=== PATIENT | male | born 1950 | race American Indian/Alaskan Native ===

== ENCOUNTER 2020-09-05 05:54 | Observation (INO) | payer MEDICARE ==
[2020-09-01 10:12] LABS: Hematocrit 42.3 % (35.5-45.6); Hemoglobin 14.2 gm/dl (11.8-15.2); Mean Corpuscular HGB Conc 34 % (32-34); Mean Corpuscular Volume 89 fl (84-94); Platelet Count 230 K/mm3 (140-440); Red Blood Count 4.76 M/mm3 (3.65-5.03); Red Cell Distribution Width 13.6 % (13.2-15.2)
--- NOTE | 2020-09-01 10:24 | Anesthesia Consultation ---
Anesthesia Consult and Med Hx Date of service: 09/05/20 - Airway Anesthetic Teeth Evaluation: Chipped (Missing) ROM Head & Neck: Adequate Mental/Hyoid Distance: Adequate Mallampati Class: Class II Intubation Access Assessment: Good - Pre-Operative Health Status ASA Pre-Surgery Classification: ASA2 Proposed Anesthetic Plan: General Nerve Block: TAP - Pulmonary Hx Smoking: Yes (Quit many years ago) Hx Asthma: No COPD: No Hx Pneumonia: No Hx Sleep Apnea: No (SNORES HIGH RISK ON FLORY PRESCREEN) - Cardiovascular System Hx Hypertension: Yes Hx Heart Attack/AMI: No Hx Pacemaker: No Hx Internal Defibrillator: No Hx Heart Murmur: No - Central Nervous System Hx Seizures: No Hx Back Pain: No Hx Psychiatric Problems: Yes - Endocrine Hx Renal Disease: No Hx End Stage Renal Disease: No Hx Cirrhosis: No Hx Liver Disease: No - Hematic Hx Anemia: No Hx Sickle Cell Disease: No - Other Systems Hx Alcohol Use: No Hx Substance Use: No Hx Cancer: Yes Hx Obesity: Yes
[2020-09-01 10:36] LABS: Alanine Aminotransferase 15 units/L (7-56); Albumin 3.9 g/dL (3.9-5); BUN/Creatinine Ratio 15; Blood Urea Nitrogen 15 mg/dL (9-20); Calcium 8.7 mg/dL (8.4-10.2); Hemolysis Index 5
[2020-09-05] MEDS ORDERED: CELECOXIB 200 MG CAP PO NR (06:00)
[2020-09-05] MEDS ORDERED: LACTATED RINGERS 1,000 ML IV SCH (06:00)
[2020-09-05] MEDS ORDERED: MIDAZOLAM 2 MG/2 ML INJ IV NR (06:00)
[2020-09-05] MEDS ORDERED: MAGNESIUM OXIDE 400 MG TAB PO NR (06:00)
[2020-09-05] MEDS ORDERED: ACETAMINOPHEN 325 MG TAB PO NR (06:00)
[2020-09-05] MEDS ORDERED: fentaNYL 100 MCG/2 ML INJ IV NR (06:00)
[2020-09-05] MEDS ORDERED: BACTERIOSTATIC SODIUM CHLORIDE 0.9% 30 ML VIAL INFILTRATI ONE (06:06)
[2020-09-05] MEDS ORDERED: BUPIVACAINE/PF (0.5%) 5 MG/1 ML 30 ML VIAL INFILTRATI ONE ×2 (06:44→07:15)
[2020-09-05] MEDS ORDERED: LIDOCAINE (1%) 10 MG/1 ML VIAL 20 ML MDV ONE (06:44)
[2020-09-05] MEDS ORDERED: dexAMETHasone 20 MG/5 ML VIAL ONE ×2 (06:44→07:25)
[2020-09-05] MEDS ORDERED: SODIUM CHLORIDE 0.9% 500 ML 500 ML ONE (06:45)
[2020-09-05] MEDS ORDERED: CITRIC ACID-SOD CITRATE 500 ML IV ONE (07:15)
[2020-09-05] MEDS ORDERED: METHYLENE BLUE 50 MG/10 ML AMP ONE (07:15)
[2020-09-05] MEDS ORDERED: CALCIUM CHLORIDE 1,000 MG/10 ML SYRINGE IV ONE (07:15)
[2020-09-05] MEDS ORDERED: THROMBIN (RECOMBINANT) 5,000 UNIT VIAL TP ONE (07:15)
[2020-09-05] MEDS ORDERED: ROCURONIUM 50 MG/5 ML INJ IV ONE ×2 (07:25→10:28)
[2020-09-05] MEDS ORDERED: ONDANSETRON 4 MG/2 ML INJ ONE (07:25)
[2020-09-05] MEDS ORDERED: LIDOCAINE MPF (2%) 20 MG/1 ML VIAL 5 ML ONE (07:25)
[2020-09-05] MEDS ORDERED: propofoL 200 MG/20 ML VIAL IV ONE (07:26)
[2020-09-05] MEDS ORDERED: HYDROmorphone 1 MG/1 ML INJ ONE (07:26)
[2020-09-05] MEDS ORDERED: ceFAZolin/STERILE WATER 2 GM/20 ML SYRINGE IV NR (07:30)
[2020-09-05] MEDS ORDERED: ONDANSETRON 4 MG/2 ML INJ IV PRN ×2 (09:03→11:30)
--- NOTE | 2020-09-05 09:04 | Anesthesia Day of Surgery ---
Anesthesia Day of Surgery - Day of Surgery Patient Examined: Yes Patient H&P Reviewed: Yes Patient is NPO: Yes
[2020-09-05] MEDS ORDERED: SODIUM CHLORIDE 0.9% IRR 1,500 ML BOTTLE IR ONE (09:17)
[2020-09-05] MEDS ORDERED: SODIUM CHLORIDE 0.9% IRRIG SOLN 2000 ML IR ONE (09:17)
[2020-09-05] MEDS ORDERED: WATER FOR IRRIG STERILE 1,500 ML BOTTLE IR ONE (09:17)
[2020-09-05] MEDS ORDERED: GLYCOPYRROLATE 0.4 MG/2 ML INJ ONE (10:28)
[2020-09-05] MEDS ORDERED: NEOSTIGMINE 10MG/10 ML INJ MDV ONE (10:28)
[2020-09-05] MEDS ORDERED: LACTATED RINGERS 1,000 ML ONE (10:35)
--- NOTE | 2020-09-05 10:46 | Short Stay Summary ---
Short Stay Documentation Date of service: 09/05/20 - History H&P: obtained from office - Allergies and Medications Current Medications: Allergies No Known Allergies Allergy (Unverified 08/29/20 16:24) Home Medications Medication Instructions Recorded Confirmed Last Taken Type NIFEdipine [Nifedipine ER] 30 mg PO DAILY 08/29/20 09/05/20 09/05/20 05:30 History Omeprazole 40 mg PO DAILY 08/29/20 09/05/20 09/04/20 History One-Daily Multi-Vitamin 1 caplet PO DAILY 08/29/20 09/05/20 09/03/20 History Active Medications Acetaminophen (Acetaminophen 325 Mg Tab) 650 mg PO ONCE NR Stop: 09/05/20 23:59 Last Admin: 09/05/20 06:50 Dose: 650 mg Documented by: Cefazolin Sodium (Cefazolin/Sterile Water 2 Gm/20 Ml Syringe) 2 gm IV PREOP NR Stop: 09/05/20 21:00 Celecoxib (Celecoxib 200 Mg Cap) 200 mg PO PREOP NR Stop: 09/05/20 23:59 Last Admin: 09/05/20 06:50 Dose: 200 mg Documented by: Fentanyl (Fentanyl 100 Mcg/2 Ml Inj) 100 mcg IV ONCE NR Stop: 09/05/20 23:59 Last Admin: 09/05/20 07:21 Dose: 100 mcg Documented by: Hydromorphone HCl (Hydromorphone 1 Mg/1 Ml Inj) 0.5 mg IV Q10MIN PRN PRN Reason: Pain , Severe (7-10) Stop: 09/05/20 23:00 Lactated Ringer's (Lactated Ringers) 1,000 mls @ 125 mls/hr IV DIRECT ASHWIN Last Admin: 09/05/20 06:55 Dose: 125 mls/hr Documented by: Magnesium Oxide (Magnesium Oxide 400 Mg Tab) 400 mg PO ONCE NR Stop: 09/05/20 23:59 Last Admin: 09/05/20 06:50 Dose: 400 mg Documented by: Midazolam HCl (Midazolam 2 Mg/2 Ml Inj) 2 mg IV PREOP NR Stop: 09/05/20 23:59 Last Admin: 09/05/20 07:21 Dose: 2 mg Documented by: Ondansetron HCl (Ondansetron 4 Mg/2 Ml Inj) 4 mg IV ONCE PRN PRN Reason: Nausea And Vomiting Stop: 09/05/20 20:00 - Brief post op/procedure progress note Date of procedure: 09/05/20 Pre-op diagnosis: prostate cancer Post-op diagnosis: same Procedure: robotic prostatectomy, bladder neck suspenstion, stem cell graft Anesthesia: GETA Surgeon: ENMA BOATENG Estimated blood loss: other (300cc) Pathology: list (prostate) Specimen disposition: to lab Condition: stable - Hospital course Hospital course: nocro& bactrim/post op info on chart / nurse at bedside mirela removed dc home with garcia - Disposition Condition at discharge: Stable Short Stay Discharge Plan Follow up with: SUE SWAN MD [Primary Care Provider] - 7 Days
--- NOTE | 2020-09-05 10:52 | Consultation ---
History of Present Illness - Reason for Consult Consult date: 09/05/20 HTN Requesting physician: ENMA BOATENG - History of Present Illness Patient is a 69 year old male with past medical hx of htn, prostate cancer who was admitted for observation following robotic prostatectomy, bladder neck suspension, stem cell graft and we are consulted to assist with medical m anagement of prostate cancer while in house. Patient tolerated the procedure without any reported complications. He denies any chest pain, Fever, shortness of breath or blurry vision at the time of my exam. He only reported soreness at the site of surgery. Past History Past Medical History: hypertension Past Surgical History: Other (robotic prostatectomy, bladder neck suspenstion, stem cell graft) Social history: , full code. denies: alcohol abuse, IV drug use Family history: no significant family history Medications and Allergies Allergies Allergy/AdvReac Type Severity Reaction Status Date / Time No Known Allergies Allergy Unverified 08/29/20 16:24 Home Medications Medication Instructions Recorded Confirmed Last Taken Type NIFEdipine [Nifedipine ER] 30 mg PO DAILY 08/29/20 09/05/20 09/05/20 05:30 History Omeprazole 40 mg PO DAILY 08/29/20 09/05/20 09/04/20 History One-Daily Multi-Vitamin 1 caplet PO DAILY 08/29/20 09/05/20 09/03/20 History Active Meds: Active Medications Acetaminophen (Acetaminophen 325 Mg Tab) 650 mg PO ONCE NR Stop: 09/05/20 23:59 Last Admin: 09/05/20 06:50 Dose: 650 mg Documented by: Cefazolin Sodium (Cefazolin/Sterile Water 2 Gm/20 Ml Syringe) 2 gm IV PREOP NR Stop: 09/05/20 21:00 Celecoxib (Celecoxib 200 Mg Cap) 200 mg PO PREOP NR Stop: 09/05/20 23:59 Last Admin: 09/05/20 06:50 Dose: 200 mg Documented by: Fentanyl (Fentanyl 100 Mcg/2 Ml Inj) 100 mcg IV ONCE NR Stop: 09/05/20 23:59 Last Admin: 09/05/20 07:21 Dose: 100 mcg Documented by: Hydromorphone HCl (Hydromorphone 1 Mg/1 Ml Inj) 0.5 mg IV Q10MIN PRN PRN Reason: Pain , Severe (7-10) Stop: 09/05/20 23:00 Lactated Ringer's (Lactated Ringers) 1,000 mls @ 125 mls/hr IV DIRECT ASHWIN Last Admin: 09/05/20 06:55 Dose: 125 mls/hr Documented by: Sodium Chloride (Nacl 0.9% 1000 Ml) 1,000 mls @ 125 mls/hr IV DIRECT ASHWIN Cefazolin Sodium (Ancef/Ns 1 Gm/50 Ml) 1 gm in 50 mls @ 100 mls/hr IV Q8H ASHWIN; Protocol Stop: 09/05/20 19:29 Magnesium Oxide (Magnesium Oxide 400 Mg Tab) 400 mg PO ONCE NR Stop: 09/05/20 23:59 Last Admin: 09/05/20 06:50 Dose: 400 mg Documented by: Midazolam HCl (Midazolam 2 Mg/2 Ml Inj) 2 mg IV PREOP NR Stop: 09/05/20 23:59 Last Admin: 09/05/20 07:21 Dose: 2 mg Documented by: Miscellaneous Medication (Omeprazole [Omeprazole]) 40 mg PO DAILY [facility] Morphine Sulfate (Morphine 4 Mg/1 Ml Inj) 4 mg IV Q4H PRN PRN Reason: Pain , Severe (7-10) Naloxone HCl (Naloxone 0.4 Mg/1 Ml Inj) 0.1 mg IV Q2MIN PRN PRN Reason: Res Rate </= 8 or 02 SAT < 92% Nifedipine (Nifedipine Xl 30 Mg Tab) 30 mg PO DAILY [facility] Ondansetron HCl (Ondansetron 4 Mg/2 Ml Inj) 4 mg IV ONCE PRN PRN Reason: Nausea And Vomiting Stop: 09/05/20 20:00 Ondansetron HCl (Ondansetron 4 Mg/2 Ml Inj) 4 mg IV Q8H PRN PRN Reason: Nausea And Vomiting Zolpidem Tartrate (Zolpidem 5 Mg Tab) 5 mg PO QHS PRN PRN Reason: Sleep Review of Systems All systems: negative Genitourinary Male: other (sore at surgical site) Exam - Constitutional Vitals: Temp Pulse Resp BP Pulse Ox 98.3 F 61 16 156/80 98 09/01/20 10:00 09/01/20 10:00 09/01/20 10:00 09/01/20 10:00 09/01/20 10:00 General appearance: Present: no acute distress - EENT Eyes: Present: PERRL, EOM intact - Neck Neck: Present: supple, normal ROM - Respiratory Respiratory effort: normal Respiratory: bilateral: CTA - Cardiovascular Rhythm: regular Heart Sounds: Present: S1 & S2. Absent: systolic murmur, diastolic murmur - Extremities Extremities: no ischemia, pulses intact, No edema, normal temperature, Full ROM Peripheral Pulses: within normal limits - Abdominal General gastrointestinal: Present: soft, non-tender, non-distended - Integumentary Integumentary: Present: clear, warm - Musculoskeletal Musculoskeletal: strength equal bilaterally - Psychiatric Psychiatric: appropriate mood/affect, intact judgment & insight - Neurologic Neurologic: CNII-XII intact, moves all extremities - Allied Health Allied health notes reviewed: nursing Results - Labs CBC & Chem 7: 09/01/20 09:50 09/01/20 09:50 Assessment and Plan Patient is a 69 year old male with past medical hx of htn, prostate cancer who was admitted for observation following robotic prostatectomy, bladder neck suspension, stem cell graft and we are consulted to assist with medical management of prostate cancer while in house. Patient tolerated the procedure without any reported complications. He denies any chest pain, Fever, shortness of breath or blurry vision at the time of my exam. He only reported soreness at the site of surgery. HTN Prostate Cancer Plan Continue Home BP meds as already prescribed Pain control per urology DVT prophy Thank you for allowing us take part in the care of your patient, will follow while in house Plan discussed with patient Follow up with PCP and Urologist on discharge.
[2020-09-05] MEDS ORDERED: SODIUM CHLORIDE 0.9% 1000 ML 1,000 ML IV SCH (11:00)
[2020-09-05] MEDS ORDERED: NALOXONE 0.4 MG/1 ML INJ IV PRN (11:00)
[2020-09-05] MEDS: HYDROmorphone 1 MG/1 ML INJ IV PRN ×4 (11:10→11:40)
--- NOTE | 2020-09-05 11:57 | Operative Report ---
DATE OF SURGERY: 09/05/2020 PREOPERATIVE DIAGNOSIS: Prostate cancer, [place] 8. POSTOPERATIVE DIAGNOSIS: Prostate cancer, [place] 8. PROCEDURE: Robotic-assisted laparoscopic prostatectomy, bladder neck suspension, stem cell graft implantation. SURGEON: Shaheed Paredes MD FOOD AND NUTRITION TEACHER: Yanci Villanueva. ANESTHESIA: General. ESTIMATED BLOOD LOSS: 300 mL. FLUIDS: Crystalloid 125 mL, Cell Saver. COMPLICATIONS: No complications. DRAINS: Eric-Chaudhry drain x1. INDICATIONS FOR PROCEDURE: This is a 69-year-old gentleman referred for an elevated PSA of [address] Yury Huitron. Prostate ultrasound and biopsy revealed a [place] 8 adenocarcinoma of the prostate. Bone scan and CT scan unremarkable. Discussed options. He agreed to proceed with surgical intervention. DESCRIPTION OF PROCEDURE: The patient was taken to the operative suite, placed in a supine position. After adequate general anesthesia, his Doan catheter was placed on the operative field. A 1 inch supraumbilical incision was made with a Bovie. Towel clips were placed. A Veress needle was used for drop test, which was negative. Opening pressure was 4 cm of water. Insufflation of the abdomen was performed to 15 cm of water. 15 cm was marked in the midline cephalad to the pubic symphysis 9 cm lateral. Additional 9 cm lateral were placed and used for port placement. A 10 mm 0-degree lens was placed without difficulty. No signs of injury or metastasis could be appreciated. The patient was then placed in exaggerated dorsal lithotomy position. The 8 mm robotic ports were placed on the left, an 8 mm robotic port on the right, 10 mm helper port as well as a 5 mm helper port on the right. The robotic cart was docked between the legs. Next, attention was taken to the posterior aspect of the prostate and bladder. Second arch was scored. Seminal vesicles and vas deferens were identified and dissected out. The vas deferens was transected. Dissection was taken to the apex of the prostate. Next, attention was taken to the abdominal wall lateral to the lateral umbilical ligament was scored bilaterally and then across the midline to allow the bladder flap to drop, pubic rami could be appreciated bilaterally, the endopelvic fascia was opened bilaterally as well. Dorsal vein complex was then controlled with a 60 mm vascular stapler. Attention was then taken to the bladder neck, which was manipulated to identify, the Doan was transected anteriorly exposing the Doan catheter, which was deflated and pulled anteriorly. The ureteral orifices could be appreciated and was uninjured. Posterior bladder neck was transected exposing the seminal vesicles and vas deferens, which were pulled anteriorly. Lateral pedicles were then controlled with the 60 mm vascular stapler. Dissection of the apex of the prostate was performed. The distal urethra was transected. Prostate was dissected free and placed in the EndoCatch bag. Copious irrigation was performed. Adequate hemostasis was achieved. The bladder neck was then tapered down using a 2-0 Vicryl at the 5 o'clock and 7 o'clock positions to allow insertion of 18-Syriac Dona. Double armed V-Loc was placed at the 6 o'clock position of the ____ 6 o'clock position of the bladder neck corresponding aspect of the urethra in a running stitch bilaterally. An 18-Syriac Doan catheter was then placed into the bladder, 20 mL of sterile water was placed. The anastomotic stitch was cinched down. Doan was irrigated. No clots. Next, the stem cell graft, a 1 cm segment was placed along the neurovascular bundle on the right and left sides without difficulty. The bladder was used to suspend it in position. A Eric-Chaudhry drain was brought out through side port on the left port. The robotic cart was undocked. The patient was then placed in the supine position. The supraumbilical port was removed along with all the other ports. The supraumbilical incision was extended to allow removal of the prostate. #1 Vicryl was used for closure of the supraumbilical incision. A [id number] stitch was placed in the skin and the rectus fascia x3. Eric-Chaudhry drain was secured with 2-0 silk in interrupted fashion. Skin was closed with 3-0 chromic in interrupted fashion. Doan catheter sideport was folded over and tied with 0 silk in interrupted fashion. The patient tolerated the procedure, was extubated and taken to the recovery room. PLAN: He will be observed overnight and go home on Bactrim and [place]. TID: [id number] RECEIPT: [id number] SULMA/CLAUDIA
[2020-09-05] MEDS ORDERED: PANTOPRAZOLE 40 MG TAB PO SCH (12:00)
--- NOTE | 2020-09-05 14:06 | Post Anesthesia Evaluation ---
- Post Anesthesia Evaluation Patient Participated: Yes Airway Patent: Yes Stable Respiratory Function: Yes Nausea/Vomiting: No Temp > 96.8F: Yes Pain Manageable: Yes Adequeate Hydration: Yes Anesthesia Complications: No
[2020-09-05] MEDS: ceFAZolin/NS 1 GM/50 ML 1 GM/50 ML BAG IV SCH (17:24)
[2020-09-05] MEDS: MORPHINE 4 MG/1 ML INJ IV PRN ×2 (17:27→21:53)
[2020-09-05] MEDS ORDERED: ZOLPIDEM 5 MG TAB PO PRN (22:00)
[2020-09-06] MEDS: ceFAZolin/NS 1 GM/50 ML 1 GM/50 ML BAG IV SCH (02:04)
[2020-09-06] MEDS: MORPHINE 4 MG/1 ML INJ IV PRN (02:09)
[2020-09-06 07:38] VITALS: BP 111/58
[2020-09-06 08:44] LABS: Basophils % (Auto) 0.4 % (0.0-1.8); Eosinophils % (Auto) 0.3 % (0.0-4.3); Hematocrit 37.6 % (35.5-45.6); Hemoglobin 12.3 gm/dl (11.8-15.2); Lymphocytes # (Auto) 2.2 K/mm3 (1.2-5.4); Lymphocytes % (Auto) 21.5 % (13.4-35.0); Mean Corpuscular HGB Conc 33 % (32-34); Mean Corpuscular Volume 89 fl (84-94); Monocytes # (Auto) 1.5 K/mm3 (0.0-0.8); Platelet Count 216 K/mm3 (140-440); Red Blood Count 4.22 M/mm3 (3.65-5.03); Red Cell Distribution Width 13.7 % (13.2-15.2)
--- NOTE | 2020-09-06 08:49 | Progress Note ---
Assessment and Plan Assessment and plan: Patient is a 69 year old male with past medical hx of htn, prostate cancer who was admitted for observation following robotic prostatectomy, bladder neck suspension, stem cell graft and we are consulted to assist with medical management of prostate cancer while in house. Patient tolerated the procedure w ithout any reported complications. He denies any chest pain, Fever, shortness of breath or blurry vision at the time of my exam. He only reported soreness at the site of surgery. HTN Prostate Cancer Plan Continue Home BP meds as already prescribed Ok with discharge plan Pain control per urology DVT prophy Thank you for allowing us take part in the care of your patient, will follow while in house Plan discussed with patient Follow up with PCP and Urologist on discharge. History Interval history: Patient seen and examined today. No new complaints. Required pain meds at night but doing well this morning Hospitalist Physical - Physical exam Narrative exam: VITAL SIGNS: Reviewed. GENERAL: The patient appears normally developed, Vital signs as documented. HEAD: No signs of head trauma. EYES: Pupils are equal. Extraocular motions intact. EARS: Hearing grossly intact. MOUTH: Oropharynx is normal. NECK: No adenopathy, no JVD. CHEST: Chest with clear breath sounds bilaterally. No wheezes, rales, or rhonchi. CARDIAC: Regular rate and rhythm. S1 and S2, without murmurs, gallops, or rubs. VASCULAR: No Edema. Peripheral pulses normal and equal in all extremities. ABDOMEN: Soft, non tender and non distended. enlarged panus, No rebound or guarding, and no masses palpated. Bowel Sounds normal. MUSCULOSKELETAL: Good range of motion of all major joints. Extremities without clubbing, cyanosis or edema. NEUROLOGIC EXAM: Alert and oriented x 3 No focal sensory or strength deficits. Speech normal. Follows commands. PSYCHIATRIC: Mood normal. SKIN: detail exam as documented in skin assessment - Constitutional Vitals: Temp Pulse Resp BP Pulse Ox 98.6 F 55 L 16 111/58 96 09/06/20 07:11 09/06/20 07:11 09/06/20 07:11 09/06/20 07:11 09/06/20 07:11 General appearance: Present: no acute distress Results - Labs CBC & Chem 7: 09/06/20 08:17 09/01/20 09:50 Labs: Laboratory Last Values WBC 10.3 K/mm3 (4.5-11.0) 09/06/20 08:17 RBC 4.22 M/mm3 (3.65-5.03) 09/06/20 08:17 Hgb 12.3 gm/dl (11.8-15.2) 09/06/20 08:17 Hct 37.6 % (35.5-45.6) 09/06/20 08:17 MCV 89 fl (84-94) 09/06/20 08:17 MCH 29 pg (28-32) 09/06/20 08:17 MCHC 33 % (32-34) 09/06/20 08:17 RDW 13.7 % (13.2-15.2) 09/06/20 08:17 Plt Count 216 K/mm3 (140-440) 09/06/20 08:17 Lymph % (Auto) 21.5 % (13.4-35.0) 09/06/20 08:17 [place] % (Auto) 14.0 % (0.0-7.3) H 09/06/20 08:17 Eos % (Auto) 0.3 % (0.0-4.3) 09/06/20 08:17 Baso % (Auto) 0.4 % (0.0-1.8) 09/06/20 08:17 Lymph # (Auto) 2.2 K/mm3 (1.2-5.4) 09/06/20 08:17 [place] # (Auto) 1.5 K/mm3 (0.0-0.8) H 09/06/20 08:17 Eos # (Auto) 0.0 K/mm3 (0.0-0.4) 09/06/20 08:17 Baso # (Auto) 0.0 K/mm3 (0.0-0.1) 09/06/20 08:17 Seg Neutrophils % 63.8 % (40.0-70.0) 09/06/20 08:17 Seg Neutrophils # 6.6 K/mm3 (1.8-7.7) 09/06/20 08:17 Sodium 140 mmol/L (137-145) 09/01/20 09:50 Potassium 4.1 mmol/L (3.6-5.0) 09/01/20 09:50 Chloride 104.7 mmol/L (98-107) 09/01/20 09:50 Carbon Dioxide 27 mmol/L (22-30) 09/01/20 09:50 Anion Gap 12 mmol/L 09/01/20 09:50 BUN 15 mg/dL (9-20) 09/01/20 09:50 Creatinine 1.0 mg/dL (0.8-1.3) 09/01/20 09:50 Estimated GFR > 60 ml/min 09/01/20 09:50 BUN/Creatinine Ratio 15 % 09/01/20 09:50 Glucose 128 mg/dL (75-100) H 09/01/20 09:50 Calcium 8.7 mg/dL (8.4-10.2) 09/01/20 09:50 Total Bilirubin 0.60 mg/dL (0.1-1.2) 09/01/20 09:50 AST 19 units/L (5-40) 09/01/20 09:50 ALT 15 units/L (7-56) 09/01/20 09:50 Alkaline Phosphatase 72 units/L (35-129) 09/01/20 09:50 Total Protein 7.2 g/dL (6.3-8.2) 09/01/20 09:50 Albumin 3.9 g/dL (3.9-5) 09/01/20 09:50 Albumin/Globulin Ratio 1.2 % 09/01/20 09:50 Coronavirus (PCR) Negative (Negative) 09/01/20 09:50 Doan/IV: Voiding Method Indwelling Catheter Active Medications - Current Medications Current Medications: Generic Name Dose Route Start Last Admin Trade Name Ericq PRN Reason Stop Dose Admin Lactated Ringer's 1,000 mls @ 125 mls/hr 09/05/20 06:00 09/05/20 06:55 Lactated Ringers IV 125 mls/hr DIRECT ASHWIN Administration Sodium Chloride 1,000 mls @ 125 mls/hr 09/05/20 11:00 09/05/20 16:48 Nacl 0.9% 1000 Ml IV 125 mls/hr DIRECT ASHWIN Administration Morphine Sulfate 4 mg 09/05/20 11:30 09/06/20 02:09 Morphine 4 Mg/1 Ml Inj IV 4 mg Q4H PRN Administration Pain , Severe (7-10) Naloxone HCl 0.1 mg 09/05/20 11:00 Naloxone 0.4 Mg/1 Ml Inj IV Q2MIN PRN Res Rate </= 8 or 02 SAT < 92% Nifedipine 30 mg 09/06/20 10:00 Nifedipine Xl 30 Mg Tab PO DAILY ASHWIN Ondansetron HCl 4 mg 09/05/20 11:30 Ondansetron 4 Mg/2 Ml Inj IV Q8H PRN Nausea And Vomiting Pantoprazole Sodium 40 mg 09/05/20 12:00 09/05/20 16:48 Pantoprazole 40 Mg Tab PO 40 mg DAILY ASHWIN Administration Zolpidem Tartrate 5 mg 09/05/20 22:00 Zolpidem 5 Mg Tab PO QHS PRN Sleep
[2020-09-06 09:01] LABS: BUN/Creatinine Ratio 18; Blood Urea Nitrogen 20 mg/dL (9-20); Calcium 8.1 mg/dL (8.4-10.2); Hemolysis Index 20
[2020-09-06] MEDS ORDERED: NIFEdipine XL 30 MG TAB PO SCH (10:00)
[2020-09-06] MEDS ORDERED: NON-FORMULARY EACH (Omeprazole [Omeprazole] 40 MG Capsule.Dr) PO SCH (10:00)
== END 2020-09-06 12:30 | disposition home or self-care (01) ==
LOC: OR 05:54 → 3B-SURG 10:46
PROVIDERS: ADMIT Urology; ATTEND Urology
DX: C61 Malignant neoplasm of prostate (principal); Z20.822 Contact with and (suspected) exposure to COVID-19; I10 Essential (primary) hypertension; K21.9 Gastro-esophageal reflux disease without esophagitis; Z79.899 Other long term (current) drug therapy; Z98.890 Other specified postprocedural states
CPT/HCPCS: 36415; 55866; 64450; 80048; 80053; 85025; 85027; 88309; 96361; 96365; 96366; 96375; 96376; A4217; G0378; J0690; J1100; J1170; J2250; J2270; J2405; J2704; J2710; J3010; J7030; J7040; J7120; S2900; U0003; 88341; 88342; Q9968